=== PATIENT | female | born 1960 | race Caucasian/White ===

== ENCOUNTER 2017-02-17 14:12 | Observation (INO) ==
--- NOTE | 2017-02-17 15:42 | Emergency Department Note ---
Disposition Clinical Impression: Bilateral pleural effusion, Metastatic breast cancer Dyspnea Qualifiers: Dyspnea type: dyspnea on exertion Qualified Code(s): R06.09 - Other forms of dyspnea Disposition: Admitted As Inpatient Condition: Fair Reasons to Return/Additional Instructions: Severe fever, severe dyspnea, chest pain Referrals: Carmencita Elliott CNP [Primary Care Provider] - Forms: ED Satisfaction Letter Time of Disposition: 20:12 SOB HPI - General Chief Complaint: ED Shortness of Breath/Dyspnea Stated Complaint: SHELLIE,Cancer Patient Time Seen by Provider: 02/17/17 15:06 Source: patient Limitations: no limitations Nursing Notes Reviewed: Yes Vital Signs Reviewed: Yes - History of Present Illness Mrs. Zaman is a 56yo woman with history of active metastatic breast cancer who presents to the clinic with one week history of worsening shortness of breath. The shortness of breath started insidiously and has been getting noticeably worse throughout the day. The shortness of breath is worse with exertion, relieved by rest. There is a degree of orthopnea present, and she has been sleeping on a few pillows at night. Significantly, the patient mentions that she had a PET scan at her cancer center about a week ago which demonstrated b/l pleural effusions. She says that her cancer doctor told her to go to the ED for a CT. She denies chest pains, fevers, hemoptysis, unilateral leg swelling. She does admit to 1 month history of sinus pressure and congestions which was treated unsuccessfully with amoxicillin, and she was given a prescription for a Z-Stu which she lost and was not able to take it. - Related Data Home Medications Medication Instructions Recorded Confirmed Ergocalciferol (VITAMIN D2) 2,000 unit PO DAILY 05/01/15 02/17/17 [Vitamin D2] LORazepam [Ativan] 1 mg PO QAM AND QHS 05/01/15 02/17/17 OxyCODONE/APAP 5/325 [Percocet 1 each PO Q6HR PRN 05/01/15 02/17/17 5/325 MG] Exemestane [Aromasin] 25 mg PO DAILY 02/17/17 Gabapentin [Neurontin] 300 mg PO QAM 02/17/17 02/17/17 Gabapentin [Neurontin] 600 mg PO HS 02/17/17 02/17/17 Metoprolol [Lopressor] 25 mg PO QAM 02/17/17 02/17/17 Metoprolol [Lopressor] 50 mg PO QPM 02/17/17 02/17/17 glipiZIDE [Glucotrol] 5 mg PO BID 02/17/17 02/17/17 Allergies Allergy/AdvReac Type Severity Reaction Status Date / Time prochlorperazine Allergy Anaphylaxis Verified 04/25/15 10:50 [From Compazine] Constitutional: Reports: chills. Denies: fever, weakness Cardiovascular: Reports: dyspnea on exertion, orthopnea. Denies: palpitations, syncope Respiratory: Reports: dyspnea. Denies: hemoptysis, sputum production Gastrointestinal: Denies: abdominal pain, nausea, vomiting Musculoskeletal: Denies: back pain Neurological: Denies: headache, paresthesias Psychiatric: Denies: anxiety Endocrine: Denies: fatigue, polydipsia Hematological/Lymphatic: Denies: easy bleeding Past Medical History - Past Medical History Medical history: Reports: cancer, hypertension Psychiatric history: Reports: no psych history - Social History Smoking Status: Never smoker Smokeless Tobacco Status: No Alcohol use: Reports: none Drug use: Reports: none Physical Exam Gen.: Vitals noted. No acute distress. AAOx3 HEENT: PERRL/EOMI, oropharynx clear, Normocephalic, atraumatic Neck: Supple. No adenopathy. Cardiac: RRR, no murmur, +S1/S2 Pulmonary: Lung sounds markedly diminished in bases b/l, mild crackles present Abdomen: soft, nontender, BS noted, no guarding Back: Nontender throughout. MSK: ROM intact, no joint swelling noted Extremities: no BLE edema, nontender calf, no cyanosis or clubbing Neuro: A&Ox3, moves all extremities, no focal deficits Psych: Appropriate mood and behavior - General Limitations: no limitations General appearance: alert, in no apparent distress Course Vital Signs Temperature 98.3 F 02/17/17 14:16 Pulse Rate 95 02/17/17 14:16 Respiratory Rate 18 02/17/17 14:16 Blood Pressure 157/92 02/17/17 14:16 O2 Sat by Pulse Oximetry 98 02/17/17 14:16 Temperature 98.3 F 02/17/17 14:16 Pulse Rate 83 02/17/17 18:42 Respiratory Rate 20 02/17/17 20:32 Blood Pressure 180/102 02/17/17 20:32 O2 Sat by Pulse Oximetry 98 02/17/17 18:42 Oxygen Delivery Oxygen Delivery Room Air Shortness of Breath/Dyspnea - [facility] Narrative Medical decision making narrative: I reviewed the patient's labs and imaging. Imaging combined with physical exam demonstrates significant bilateral pleural effusions which are causing this patient's shortness of breath. The patient is an active cancer patient who is undergoing treatment in [place], so we worked the patient up for PE which was negative. Pleural effusions likely secondary to metastatic breast cancer, and ultimately will require thoracentesis. EKG does not demonstrate any ischemic changes at this time, and the patient's symptoms are not suspicious for cardiac disease. The patient remained stable throughout her course in the ED. I spoke with the hospitalist who agreed to admit her on the basis of pleural effusion of unconfirmed origin. - Medical Records Medical records reviewed: Yes I reviewed the patient's medical records. - Lab Data Lab results reviewed: Yes I reviewed the patient's lab results. Result diagrams: 02/17/17 15:47 02/17/17 15:47 Lab Results 02/17/17 02/17/17 02/17/17 Range/Units 15:47 15:47 15:47 WBC 2.8 L (4.3-11.1) K/mcL RBC 3.86 (3.82-4.97) M/mcL Hgb 9.8 L (11.5-15.4) g/dL Hct 30.2 L (35.3-44.9) % MCV 78.2 L (83.0-100.0) fL MCH 25.4 L (28.0-33.3) pg MCHC 32.5 (31.6-35.5) g/dL RDW 19.6 H (11.5-14.5) % Plt Count 110 L (140-400) K/mcL MPV 10.1 (9.4-12.4) fL Immature Gran % 1.8 (0-4) % Seg Neutrophils % 53.5 % Lymphocytes % 29.3 % Monocytes % 13.2 % Eosinophils % 1.1 % Basophils % 1.1 % Neutrophils # 1.5 L (1.6-8.9) K/mcL Lymphocytes # 0.8 (0.6-4.6) K/mcL Monocytes # 0.4 (0.0-1.3) K/mcL Eosinophils # 0.0 (0.0-0.6) K/mcL Basophils # 0.0 (0.0-0.2) K/mcL Nucleated RBCs/100 WBC 1.8 H (0) /100 WBC Platelet Estimate Decreased L (Normal) Immature Plt Fraction 3.5 (1.1-6.1) % Polychromasia 1+ A (Not Present) Poikilocytosis 1+ A (Not Present) Anisocytosis 1+ A (Not Present) Sodium 141 (136-145) mEq/L Potassium 3.4 L (3.5-5.1) mEq/L Chloride 110 H (98-107) mEq/L Carbon Dioxide 24 (23-29) mEq/L BUN 18 (6-20) mg/dL Creatinine 0.72 (0.60-1.20) mg/dL Est GFR ( Amer) > 60 (> 60) Est GFR (Non-Af Amer) > 60 (> 60) BUN/Creatinine Ratio 25 (6-26) Glucose 161 H (70-105) mg/dL Calculated Osmolality 297 (280-300) Calcium 8.5 L (8.6-10.3) mg/dL Total Bilirubin 0.6 (0.3-1.0) mg/dL Direct Bilirubin 0.1 (0.0-0.2) mg/dL Indirect Bilirubin 0.5 (0.0-1.2) mg/dL AST 73 H (13-39) Units/L ALT 34 (7-52) Units/L Alkaline Phosphatase 88 (34-104) Units/L B-Natriuretic Peptide 214 H (Less than 100) pg/mL Serum Total Protein 5.9 L (6.4-8.9) g/dL Albumin 3.4 L (3.5-5.7) g/dL Globulin 2.5 (2.4-3.5) g/dL Albumin/Globulin Ratio 1.4 (1.1-2.2) - Radiology Data Radiology results reviewed: Yes I reviewed the patient's radiology results. - EKG Data EKG attestation: Yes I reviewed and interpreted this EKG. EKG results narrative: EKG demonstrates normal sinus rhythm with a rate of 87, FL interval 134, QRS 84 , QTC 418 with no evidence of ischemic changes
[2017-02-17 16:02] LABS: Basophils % 1.1 %; Eosinophils % 1.1 %; Nucleated Red Blood Cells 1.8 /100 WBC (0)
[2017-02-17 16:04] LABS: Hematocrit 30.2 % (35.3-44.9); Hemoglobin 9.8 g/dL (11.5-15.4); Immature Granulocytes % 1.8 % (0-4); Immature Platelets 3.5 % (1.1-6.1); Lymphocytes # 0.8 K/mcL (0.6-4.6); Lymphocytes % 29.3 %; Mean Corpuscular HGB Conc 32.5 g/dL (31.6-35.5); Mean Corpuscular Hemoglobin 25.4 pg (28.0-33.3); Mean Corpuscular Volume 78.2 fL (83.0-100.0); Mean Platelet Volume 10.1 fL (9.4-12.4); Monocytes # 0.4 K/mcL (0.0-1.3); Monocytes % 13.2 %; Neutrophils # 1.5 K/mcL (1.6-8.9); Platelet Count 110 K/mcL (140-400); Red Blood Count 3.86 M/mcL (3.82-4.97); Red Cell Distribution Width 19.6 % (11.5-14.5); Segmented Neutrophils % 53.5 %
[2017-02-17 16:19] LABS: Alanine Aminotransferase 34 Units/L (7-52); Albumin 3.4 g/dL (3.5-5.7); Albumin/Globulin Ratio 1.4 (1.1-2.2); Alkaline Phosphatase 88 Units/L (34-104); Aspartate Amino Transferase 73 Units/L (13-39); BUN/Creatinine Ratio 25 (6-26); Bilirubin,Direct 0.1 mg/dL (0.0-0.2); Bilirubin,Indirect 0.5 mg/dL (0.0-1.2); Bilirubin,Total 0.6 mg/dL (0.3-1.0); Blood Urea Nitrogen 18 mg/dL (6-20); Calcium 8.5 mg/dL (8.6-10.3); Carbon Dioxide 24 mEq/L (23-29); Chloride 110 mEq/L (98-107); Globulin 2.5 g/dL (2.4-3.5); Glucose 161 mg/dL (70-105); Osmolality,Calculated 297 (280-300); Potassium 3.4 mEq/L (3.5-5.1); Sodium 141 mEq/L (136-145); Total Protein 5.9 g/dL (6.4-8.9); eGFR For African Americans > 60 (> 60); eGFR For Non-African Americans > 60 (> 60)
--- NOTE | 2017-02-17 16:27 | Emergency Department Note ---
START Narrative - START START: I examined this patient and my medical decision-making was reviewed with the FAMILY DEVELOPMENT SPECIALIST/PA/Advanced Practice Nurse/Resident Physician. I agree with the documented findings, disposition and treatment plan as described except to the extent set forth below. I did see the patient spoke with her and examined her and she does have shortness of breath for the last 1 week and her oncologist is concerned about possible pulmonary embolism and this will be evaluated further. I did review her EKG showed normal sinus rhythm with rate of 87 without acute ischemic change. [id number] I did speak with the hospitalist to accept the patient for admission. He did ask us to put the consult and for interventional radiology for consideration of thoracentesis to be done tomorrow. The patient does not do that emergently performed rhiannon. 1850
[2017-02-17 16:32] LABS: Anisocytosis 1+ (Not Present)
[2017-02-17 16:33] LABS: Platelet Estimate Decreased (Normal); Poikilocytosis 1+ (Not Present); Polychromasia 1+ (Not Present)
[2017-02-17] MEDS ORDERED: Ibuprofen 400 MG TABLET PO PRN (20:21)
[2017-02-17] MEDS ORDERED: Ondansetron ODT 4 MG TAB.RAPDIS SL PRN (20:21)
[2017-02-17] MEDS ORDERED: Acetaminophen 325 MG TABLET PO PRN (20:21)
[2017-02-17] MEDS ORDERED: Naloxone 0.4 MG/ML INJ IVP PRN (20:21)
--- NOTE | 2017-02-17 20:25 | Internal Med History&Physical ---
<Devang Jones - Last Filed: 02/17/17 21:37> Date of Encounter: 02/17/17 Time of Encounter: 20:00 Assessment and Plan (1) Dyspnea Current visit: Yes Status: Acute 2 week onset, patient saturating well on room air, CT chest shows bilateral pleural effusion without evidence of PE or PNA. Nasal cannula titrate to >95% SPO2. Qualifiers: Dyspnea type: shortness of breath Qualified Code(s): R06.02 - Shortness of breath; R06.00 - Dyspnea, unspecified; R06.01 - Orthopnea (2) Bilateral pleural effusion Current visit: Yes Status: Acute CT Chest shows bilateral pleural effusion. Patient comfortable during encounter saturating well on room air. IR consulted by ED; plan for IR evaluation with possible thoracentesis in AM. (3) Metastatic breast cancer Current visit: Yes Status: Acute Sees Dr. Tucker at [facility]. Pt reports metastasis to bone and liver. Will order PT/INR. Appointment for chemotherapy 1 week. S/p discontinuation of Afinitor/Everolimus 2 weeks ago. Wt count 2.8, patient states oncologist aware, byproduct of Afinitor treatment. Denies fever, infection, n/v/diarrhea. (4) HTN (hypertension) Current visit: Yes Status: Acute Chronic condition, continue lopressor. Qualifiers: Hypertension type: essential hypertension Qualified Code(s): I10 - Essential (primary) hypertension (5) Type 2 diabetes mellitus Current visit: Yes Status: Acute On SSI. Qualifiers: Diabetes mellitus complication status: without complication Diabetes mellitus senior care insulin use: without senior care use Qualified Code(s): E11.9 - Type 2 diabetes mellitus without complications (6) DVT prophylaxis Current visit: Yes Status: Acute On intermittent pneumatic compression. Internal Medicine - H&P: HPI Admitted From: Emergency Dept Plans for Post Hospital Care: Home History of present illness: Ms. Zaman is a 56 year old female who presents with 2 week onset of shortness of breath. Past significant medical history includes type 2 diabetes, hypertension, initial diagnosis of breast cancer in 2003, s/p bilateral mastectomy+radiation+chemotherapy, remission status until diagnosis of bone and liver metastasis in 2014. Has been on Ibrance/Palbociclib and Afinitor/ Everolimus; discontinued [address] Tucker in [facility] due to decreasing WBCs and plan for transition to chemotherapy in 1 week; patient denies diagnosis/symptoms of neutropenic fever/infection. ED workup demonstrated ECG with normal sinus rhythm and no ischemic changes, CT chest shows bilateral pleural effusion, negative for pulmonary emboli or pneumonia, consult to IR placed by ED physician, consideration for non-emergent thoracentesis in the morning. Currently, patient states she is breathing comfortably on room air, denies shortness of breath, chest pain, n/v, fever, diarrhea. Denies RUQ pain, bruising /bleeding. Past Med Surg Social Fam HX - Past Medical History Medical history: cancer, hypertension Psychiatric history: no psych history - Social History Smoking Status: Never smoker Smokeless Tobacco Status: No Alcohol use: none Drug use: none Internal Medicine - H&P: Meds Ergocalciferol (VITAMIN D2) [Vitamin D2] 2,000 unit PO DAILY 05/01/15 [History] LORazepam [Ativan] 1 mg PO QAM AND QHS 05/01/15 [History] OxyCODONE/APAP 5/325 [Percocet 5/325 MG] 1 each PO Q6HR PRN 05/01/15 [History] Exemestane [Aromasin] 25 mg PO DAILY 02/17/17 [History] Gabapentin [Neurontin] 300 mg PO QAM 02/17/17 [History] Gabapentin [Neurontin] 600 mg PO HS 02/17/17 [History] Metoprolol [Lopressor] 25 mg PO QAM 02/17/17 [History] Metoprolol [Lopressor] 50 mg PO QPM 02/17/17 [History] glipiZIDE [Glucotrol] 5 mg PO BID 02/17/17 [History] 3 Allergy/AdvReac Type Severity Reaction Status Date / Time prochlorperazine Allergy Anaphylaxis Verified 04/25/15 10:50 [From Compazine] All Systems PM: A 10-system review of systems was performed and is negative for pertinent findings except as documented above in the HPI. - Constitutional Vitals: Temp Pulse Resp BP Pulse Ox 98.3 F 83 16 180/102 98 02/17/17 14:16 02/17/17 18:42 02/17/17 18:42 02/17/17 18:42 02/17/17 18:42 General appearance: Present: A&O X 3, pleasant, no acute distress - Head Head exam: Present: atraumatic - Neck Neck exam general surgery: Present: full ROM - Respiratory Additional comments: bilateral decreased breath sounds basilar; mild decrease bilateral chest wall expansion, no tachypnea - Cardiovascular Cardiovascular exam: Present: RRR, +S1, +S2 - GI/Abdominal GI/Abdominal exam: Absent: hepatomegaly - Extremities Exam Extremities exam: Absent: calf tenderness - Neurological Exam Neurological exam: Present: no focal deficits - Skin Skin exam: Present: normal color. Absent: petechiae Internal Med - H&P Results - Labs CBC & Chem 7: 02/17/17 15:47 02/17/17 15:47 Labs: Short CBC 02/17/17 Range/Units 15:47 WBC 2.8 L (4.3-11.1) K/mcL Hgb 9.8 L (11.5-15.4) g/dL Hct 30.2 L (35.3-44.9) % Plt Count 110 L (140-400) K/mcL Neutrophils # 1.5 L (1.6-8.9) K/mcL BMP 02/17/17 15:47 Sodium 141 Potassium 3.4 L Chloride 110 H Carbon Dioxide 24 BUN 18 Creatinine 0.72 Glucose 161 H Calcium 8.5 L Liver Function 02/17/17 Range/Units 15:47 Total Bilirubin 0.6 (0.3-1.0) mg/dL Direct Bilirubin 0.1 (0.0-0.2) mg/dL AST 73 H (13-39) Units/L ALT 34 (7-52) Units/L Alkaline Phosphatase 88 (34-104) Units/L Albumin 3.4 L (3.5-5.7) g/dL - Impressions ITS Impressions Chest X-Ray 02/17/17 15:32 IMPRESSION: Perihilar and lower lung zone ground-glass airspace opacities with a small left-sided pleural effusion. Pattern may represent underlying pulmonary edema. A viral infection or developing pneumonitis cannot be excluded. D/ / Dane Hodgson MD / Dane Hodgson MD Interpreting Provider: Dane Hodgson MD Chest CTA 02/17/17 15:45 IMPRESSION: 1. No acute pulmonary emboli, aortic dissection or aneurysm 2. Large bilateral pleural effusions and bibasilar atelectasis. 3. Innumerable hepatic metastases and bony metastases D/ / Jaime Stephens MD / Jaime Stephens MD Interpreting Provider: Jaime Stephens MD <Gracie Sarmiento - Last Filed: 02/18/17 03:40> Date of Encounter: 02/18/17 Internal Medicine - H&P: HPI History of present illness: Ms. Zaman is a 56 year old female All Systems PM: A 10-system review of systems was performed and is negative for pertinent findings except as documented above in the HPI. - Constitutional Vitals: Temp Pulse Resp BP Pulse Ox 98.8 F 84 19 153/88 95 02/17/17 23:08 02/17/17 23:08 02/17/17 23:08 02/17/17 23:08 02/17/17 23:08 Internal Med - H&P Results - Labs CBC & Chem 7: 02/17/17 15:47 02/17/17 15:47 - Attending Attestation I have seen and examined pt independently. I have discussed with Resident physician Dr Jones regarding the management plan. Agree with documentation. Pt laying on bed comfortably, in NAD. Plan for thoracentesis in AM
[2017-02-17] MEDS ORDERED: *HR* OxyCODONE/APAP 5/325 TABLET PO PRN (20:26)
[2017-02-17] MEDS ORDERED: D5% in Water 1,000 ML IVC PRN (20:28)
[2017-02-17] MEDS ORDERED: Dextrose Gel 15 GM/37.5 ML TUBE PO PRN ×2 (20:28)
[2017-02-17] MEDS ORDERED: *HR* Dextrose 50 % in Water (Syg) 50 ML SYRINGE IVP PRN (20:28)
[2017-02-17] MEDS ORDERED: Insulin LISPRO 300 UNITS/3 ML VIAL SQ SCH (21:00)
[2017-02-17] MEDS ORDERED: Gabapentin 300 MG CAPSULE PO SCH (21:00)
[2017-02-17] MEDS: Cholecalciferol (D-3) 1,000 UNIT TABLET PO SCH (21:45)
[2017-02-17] MEDS: *HR* LORazepam 1 MG TABLET PO SCH (21:57)
[2017-02-18 04:01] LABS: Basophils % 1.3 %; Eosinophils % 1.3 %; Hematocrit 27.5 % (35.3-44.9); Hemoglobin 8.9 g/dL (11.5-15.4); Immature Granulocytes % 1.3 % (0-4); Lymphocytes # 0.8 K/mcL (0.6-4.6); Lymphocytes % 34.5 %; Mean Corpuscular HGB Conc 32.4 g/dL (31.6-35.5); Mean Corpuscular Hemoglobin 25.6 pg (28.0-33.3); Mean Platelet Volume 9.6 fL (9.4-12.4); Monocytes # 0.4 K/mcL (0.0-1.3); Monocytes % 16.2 %; Neutrophils # 1.1 K/mcL (1.6-8.9); Nucleated Red Blood Cells 2.6 /100 WBC (0); Red Blood Count 3.48 M/mcL (3.82-4.97); Red Cell Distribution Width 19.9 % (11.5-14.5); Segmented Neutrophils % 45.4 %
[2017-02-18 04:07] LABS: INR 1.1
[2017-02-18 04:13] LABS: Hemoglobin A1C 6.3 %
[2017-02-18 04:15] LABS: Platelet Count 91 K/mcL (140-400)
[2017-02-18 04:18] LABS: BUN/Creatinine Ratio 24 (6-26); Blood Urea Nitrogen 19 mg/dL (6-20); Calcium 8.4 mg/dL (8.6-10.3); Carbon Dioxide 24 mEq/L (23-29); Chloride 111 mEq/L (98-107); Glucose 114 mg/dL (70-105); Osmolality,Calculated 297 (280-300); Potassium 3.2 mEq/L (3.5-5.1); Sodium 142 mEq/L (136-145); eGFR For African Americans > 60 (> 60); eGFR For Non-African Americans > 60 (> 60)
[2017-02-18] MEDS: Insulin LISPRO 300 UNITS/3 ML VIAL SQ SCH ×2 (07:34→12:43)
[2017-02-18] MEDS ORDERED: Gabapentin 300 MG CAPSULE PO SCH (09:00)
[2017-02-18] MEDS: Cholecalciferol (D-3) 1,000 UNIT TABLET PO SCH (09:58)
[2017-02-18] MEDS: *HR* LORazepam 1 MG TABLET PO SCH (09:58)
--- NOTE | 2017-02-18 11:32 | IR Procedure Note ---
Date of procedure: 02/18/17 Consent Obtained: Verbal consent, Written consent Timeout: Correct patient and procedure verified, Correct site verified, Time out performed, Skin prep completed Local anesthetic: Lidocaine 1% Indications: pleural effusion Procedure Performed: R thoracentesis Was there an endodontic assistant present: No Site/Technique: right Results/Findings: serous fluid Estimated blood loss (cc): 1 Complications: None; Tolerated procedure well Post Procedure Treatment Plan: CXR Specimen: pleural fluid
[2017-02-18 15:37] VITALS: BP 108/73
--- NOTE | 2017-02-18 15:38 | Discharge Summary ---
Date of Encounter: 02/18/17 Time of Encounter: 15:36 - Discharge Diagnosis (1) Bilateral pleural effusion Priority: Primary Status: Acute (2) Dyspnea Priority: Primary Status: Acute Qualifiers: Dyspnea type: shortness of breath Qualified Code(s): R06.02 - Shortness of breath; R06.00 - Dyspnea, unspecified; R06.01 - Orthopnea (3) Metastatic breast cancer Priority: Secondary Status: Acute (4) HTN (hypertension) Priority: Secondary Status: Acute Qualifiers: Hypertension type: essential hypertension Qualified Code(s): I10 - Essential (primary) hypertension (5) Type 2 diabetes mellitus Priority: Secondary Status: Acute Qualifiers: Diabetes mellitus complication status: without complication Diabetes mellitus retirement insulin use: without ferry terminal supervisor use Qualified Code(s): E11.9 - Type 2 diabetes mellitus without complications (6) Neutropenia Priority: Primary Status: Acute Qualifiers: Neutropenia type: secondary to cancer chemotherapy Qualified Code(s): D70.1 - Agranulocytosis secondary to cancer chemotherapy; T45.1X5A - Adverse effect of antineoplastic and immunosuppressive drugs, initial encounter; T45.1X5A - Adverse effect of antineoplastic and immunosuppressive drugs, initial encounter - Discharge Medications Prescriptions: OxyCODONE/APAP 5/325 [Percocet 5/325 MG] 1 each PO Q6HR PRN #15 tablet PRN Reason: Pain Furosemide [Lasix] 20 mg PO DAILY #30 tablet Potassium Chloride 20 meq PO DAILY #30 tab.er.prt Home Medications: Ergocalciferol (VITAMIN D2) [Vitamin D2] 2,000 unit PO DAILY 05/01/15 [History] LORazepam [Ativan] 1 mg PO QAM AND QHS 05/01/15 [History] Exemestane [Aromasin] 25 mg PO DAILY 02/17/17 [History] Gabapentin [Neurontin] 300 mg PO QAM 02/17/17 [History] Gabapentin [Neurontin] 600 mg PO HS 02/17/17 [History] Metoprolol [Lopressor] 25 mg PO QAM 02/17/17 [History] Metoprolol [Lopressor] 50 mg PO QPM 02/17/17 [History] glipiZIDE [Glucotrol] 5 mg PO BID 02/17/17 [History] Furosemide [Lasix] 20 mg PO DAILY #30 tablet 02/18/17 [Rx] OxyCODONE/APAP 5/325 [Percocet 5/325 MG] 1 each PO Q6HR PRN #15 tablet 02/18/17 [Rx] Potassium Chloride 20 meq PO DAILY #30 tab.er.prt 02/18/17 [Rx] Allergies/Adverse Reactions: 3 Allergy/AdvReac Type Severity Reaction Status Date / Time prochlorperazine Allergy Anaphylaxis Verified 04/25/15 10:50 [From Compazine] Procedures/tests Complete & Pending: Procedures Performed prior 72 hours Category Date Time Status IR thoracentesis ultrasound [IR] Routine IR 02/18/17 Taken IR thoracentesis ultrasound [IR] Routine IR 02/18/17 Taken Date of admission: 02/17/17 20:55 Primary care physician: Carmencita Elliott CNP - Patient Status Disposition: Home, Self-Care Condition: Good Overall status at discharge: patient is back to baseline - Discharge Instructions Instructions: Thoracentesis (DC), Diabetes Mellitus Type 2 in Adults (DC), Pleural Effusion (DC), Pleural Effusion (GEN), Chronic Hypertension (DC) Additional Instructions: Please f/u with your regular Heme Onc as soon as possible in 5-7 days - Diet and Activity Activity: increase activity as tolerated Hospital course: Ms. Zaman is a 56 year old female who presents with 2 week onset of shortness of breath. Past significant medical history includes type 2 diabetes, hypertension, initial diagnosis of breast cancer in 2003, s/p bilateral mastectomy+radiation+chemotherapy, remission status until diagnosis of bone and liver metastasis in 2014. Has been on Ibrance/Palbociclib and Afinitor/ Everolimus; discontinued [address] Tucker in [facility] due to decreasing WBCs and plan for transition to chemotherapy in 1 week; patient denies diagnosis/symptoms of neutropenic fever/infection. ED workup demonstrated ECG with normal sinus rhythm and no ischemic changes, CT chest shows bilateral pleural effusion, negative for pulmonary emboli or pneumonia. Pt was admitted in the hospital and did have b/l thoracocentesis by IR today.. Got removed 1200 CC in each lung. Seems to be exudative fluid from possible metastatic breast cancer. Pt's Heme Onc Dr. Tucker already knew about it from recent PET scan. She is scheduled to see them next . Her f/u CXR after thoracocentesis did not show any pneumothorax and her Spo2 also in 95 on RA. So will d/c her home in stable condition today. Recommend to f/u with PCP and Heme Onc in one week. Also gave her Rx for Lasix daily, as well as K + supplements. She does have neutropenia due to recent chemo.. Pt remained afebrile, does not need any antibiotic therapy. - Time Spent with Patient Total time spent providing and/or coordinating discharge services: - Constitutional Vitals: Temp Pulse Resp BP Pulse Ox 98.3 F 82 16 133/86 95 02/18/17 10:55 02/18/17 10:55 02/18/17 10:55 02/18/17 10:55 02/18/17 10:55 General appearance: Present: A&O X 3, pleasant, no acute distress - Head Head exam: Present: atraumatic, normal inspection - Neck Neck exam general surgery: Present: supple - Respiratory Respiratory exam: Present: decreased breath sounds, rales (mild rales at basal regions), wheezes (mild). Absent: respiratory distress, rhonchi - Cardiovascular Cardiovascular exam: Present: RRR, +S1, +S2. Absent: tachycardia - GI/Abdominal GI/Abdominal exam: Present: soft. Absent: rebound, rigid, tenderness - Extremities Exam Extremities exam: Present: pedal edema (1+). Absent: calf tenderness, tenderness - Back Exam Back exam: Absent: CVA tenderness (L), CVA tenderness (R) - Psychiatric Psychiatric exam: Present: normal affect, normal mood - VTE Documentation of Mechanical Device: Graduated compression elastic hosiery
[2017-02-18 16:20] LABS: Appearance of Pleural Fl Clear (Clear)
[2017-02-18 16:22] LABS: RBC,Pleural Fluid < 0.002 M/mcL
[2017-02-18 16:24] LABS: Amylase,Pleural Fluid 37 Units/L (No Ref Range); Glucose,Pleural Fluid 118 mg/dL (No Ref Range); LDH,Pleural Fluid 255 Units/L (No Ref Range); Total Protein,Pleural Fluid 3.2 g/dL (No Ref Range); Triglycerides, Pleural Fluid 27 mg/dL (No Ref Range)
[2017-02-18 17:37] LABS: Lymphocytes,Pleural Fluid 92 %
--- NOTE | 2017-02-18 19:57 | Electrocardiograph Report ---
[address] [address] Test Date: 2017-02-17 Pat Name: Clara Zaman Department: 103 Room: 2N2 Gender: F Tax Associate Attorney: : 1960 Requested By: Oleksandr Vicente Order Number: [id number] Reading MD: Dayo Garrison MD Measurements Intervals Eunice Rate: 87 P: 24 MS: 134 QRS: 33 QRSD: 84 T: 35 QT: 373 QTc: 418 Interpretive Statements SINUS RHYTHM Electronically Signed On 02-18-2017 19:56:26 EST by Dayo Garrison MD
== END 2017-02-18 17:47 | disposition home or self-care (01) ==
LOC: 2NENU 14:12 → EMEROO 14:12 → 2NENU 20:32
PROVIDERS: ADMIT Internal Medicine; ATTEND Family Medicine